=== PATIENT | male | born 1970 | race Caucasian/White ===

== ENCOUNTER 2017-10-08 20:52 | Emergency (ER) | payer SELFPAY ==
[~2017-10-08] VITALS: Ht 162.6 cm; Wt 86.0 kg
[2017-10-08 21:03] VITALS: Ht 162.6 cm; Wt 86.0 kg
--- NOTE | 2017-10-08 22:15 | ERD ---
ER Documentation Chief Complaint Chief Complaint BIB SELF, CC: FATIGUE, POLYURIA, AND POLYDIPSIA X 2 WEEKS HPI 47-year-old male who presents to the emergency department for generalized weakness, polyuria, and polydipsia for about 2 weeks. Denies headache, dizziness, blurred vision, neck pain, throat pain, difficulty swallowing, shoulder pain, chest pain, back pain, abdominal pain, nausea, vomiting, constipation, diarrhea, hematuria, dysuria, trauma, injury, falls, difficulty walking, recent long travel, recent travel, recent exposure to any illness, changes in diet, recent antibiotic use in the last 3 months, fever, chills, numbness or tingling sensation. No known drug allergies. No past medical history. No surgeries. Does not take any prescription medication at home. 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 Denies smoking, use of alcoholic beverages, use of illegal drugs. ROS All systems reviewed and are negative except as per history of present illness. Medications Home Meds Active Scripts Metformin* (Glucophage*) 500 Mg Tab, 500 MG PO BID, #60 TAB Prov:LUIS ENRIQUE GREEN 10/08/17 Allergies Allergies: Coded Allergies: No Known Allergy (Unverified , 10/08/17) PMhx/Soc Medical and Surgical Hx: pt denies Medical Hx, pt denies Surgical Hx Hx Alcohol Use: No Hx Substance Use: No Hx Tobacco Use: No Smoking Status: Never smoker Physical Exam Vitals Vital Signs Date Time Temp Pulse Resp B/P Pulse Ox O2 Delivery O2 Flow Rate FiO2 10/08/17 21:03 98.5 89 18 126/80 100 Physical Exam Const: [] Head: Atraumatic Eyes: Normal Conjunctiva ENT: Normal External Ears, Nose and Mouth. Neck: Full range of motion..~ No meningismus. Resp: Clear to auscultation bilaterally Cardio: Regular rate and rhythm, no murmurs Abd: Soft, non tender, non distended. Normal bowel sounds Skin: No petechiae or rashes Back: No midline or flank tenderness Ext: No cyanosis, or edema Neur: Awake and alert. Neurological deficits. Romberg test is negative. Psych: Normal Mood and Affect Result Diagram: 10/08/17222910/08/172229 Results 24 hrs Laboratory Tests Test 10/08/17 22:30 11/18/17 22:40 White Blood Count 6.710^3/ul Red Blood Count 4.7010^6/ul Hemoglobin 14.7g/dl Hematocrit 41.0% Mean Corpuscular Volume 87.2fl Mean Corpuscular Hemoglobin 31.3pg Mean Corpuscular Hemoglobin Concent 35.9g/dl Red Cell Distribution Width 11.9% Platelet Count 12842^3/UL Mean Platelet Volume 11.6fl Neutrophils % 57.8% Lymphocytes % 31.1% Monocytes % 8.5% Eosinophils % 1.8% Basophils % 0.4% Nucleated Red Blood Cells % 0.0/100WBC Neutrophils # 3.910^3/ul Lymphocytes # 2.110^3/ul Monocytes # 0.610^3/ul Eosinophils # 0.110^3/ul Basophils # 0.010^3/ul Nucleated Red Blood Cells # 0.010^3/ul Prothrombin Time 13.1Sec Prothrombin Time Ratio 1.0 INR International Normalized Ratio 0.99 Activated Partial Thromboplast Time 27.2Sec Sodium Level 136mmol/L Potassium Level 4.3mmol/L Chloride Level 101mmol/L Carbon Dioxide Level 29mmol/L Anion Gap 10 Blood Urea Nitrogen 13mg/dl Creatinine 0.73mg/dl Glucose Level 264mg/dl Calcium Level 9.3mg/dl Total Bilirubin 0.9mg/dl Direct Bilirubin 0.00mg/dl Indirect Bilirubin 0.9mg/dl Aspartate Amino Transf (AST/SGOT) 26IU/L Alanine Aminotransferase (ALT/SGPT) 56IU/L Alkaline Phosphatase 140IU/L Troponin I < 0.012ng/ml Total Protein 7.4g/dl Albumin 3.9g/dl Globulin 3.50g/dl Albumin/Globulin Ratio 1.11 Urine Color YELLOW Urine Clarity CLEAR Urine pH 5.0 Urine Specific [place] 1.028 Urine Ketones TRACEmg/dL Urine Nitrite NEGATIVEmg/dL Urine Bilirubin NEGATIVEmg/dL Urine Urobilinogen NEGATIVEmg/dL Urine Leukocyte Esterase NEGATIVELeu/ul Urine Hemoglobin NEGATIVEmg/dL Urine Glucose 3+mg/dL Urine Total Protein NEGATIVEmg/dl Current Medications Medications (Trade) Dose Ordered Sig/Gayle Route PRN Reason Start Time Stop Time Status Last Admin Dose Admin Sodium Chloride (NS) 1,000 ml @ 1,000 mls/hr Q1H ONCE IV 10/09/17 00:00 10/09/17 00:41 DC 10/09/17 00:04 Procedures/MDM 47-year-old male who presents to the emergency department for generalized weakness, polyuria, and polydipsia for about 2 weeks. Denies headache, dizziness, blurred vision, neck pain, throat pain, difficulty swallowing, shoulder pain, chest pain, back pain, abdominal pain, nausea, vomiting, constipation, diarrhea, hematuria, dysuria, trauma, injury, falls, difficulty walking, recent long travel, recent travel, recent exposure to any illness, changes in diet, recent antibiotic use in the last 3 months, fever, chills, numbness or tingling sensation. No known drug allergies. No past medical history. No surgeries. Does not take any prescription medication at home. 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 Denies smoking, use of alcoholic beverages, use of illegal drugs. Physical exam: Unremarkable. Disease process was explained to the patient and family members. They verbalized understanding and agreed with the diagnostic test, plan of care. EKG: Sinus bradycardia with ventricular rate of 53 bpm. No STEMI. Read by revising emergency room physician, Dr. Jose M Mitchell. Blood tests: Hyperglycemia. Urinalysis: Positive for glucose. Treatment: IV insertion. Normal saline IV. I offered the patient to be admitted here in the emergency department but patient refused to stay stating that he has a good PCP follow-up. Case and diagnostic test results was discussed with supervising physician, Dr. Jose M Mitchell who agreed in my medical decision making. Reevaluation: Denies headache, dizziness, blurry vision, neck pain, throat pain , difficulty swallowing, shoulder pain, chest pain, back pain, abdominal pain, nausea, vomiting. No episode of emesis here in the emergency department. There is no right upper/right lower/epigastric/left upper/left lower abdominal tenderness and light and deep palpation. Negative on Rovsing's sign. Negative [place] sign. Negative psoas sign. Able to jump 5 times without developing abdominal pain. No CVA tenderness. No signs of peritoneal irritation. Reported steady gait and without difficulty without pain to abdomen. No neurovascular deficit. No neurological deficits. Differential diagnosis: New-onset diabetes versus generalized weakness Final diagnosis: New onset diabetes. Prescription: Metformin. Follow-up primary care physician the next 24-48 hours. Come back here in the emergency department for any new symptoms or any worsening symptoms. All questions and concerns were answered. Patient and family member verbalized understanding and agreed with the plan of care. Hemodynamically stable on discharge. Departure Diagnosis: Primary Impression: New onset type 2 diabetes mellitus Condition: Stable Additional Instructions: Follow-up primary care physician the next 24-48 hours. Come back here in the emergency department for any new symptoms or any worsening symptoms. All questions and concerns were answered. Patient and family member verbalized understanding and agreed with the plan of care. LUIS ENRIQUE GREEN Oct 08, 2017 22:15
[2017-10-08 22:44] LABS: BASOPHILS % 0.4 % (0.0-2.0); EOSINOPHILS # 0.1 10^3/ul (0.0-0.5); EOSINOPHILS % 1.8 % (0.0-7.0); HEMOGLOBIN 14.7 g/dl (14.0-18.0); LYMPHOCYTES # 2.1 10^3/ul (0.8-2.9); LYMPHOCYTES % 31.1 % (15.0-51.0); MEAN CORPUSCULAR HEMOGLOBIN 31.3 pg (29.0-33.0); MEAN CORPUSCULAR HGB CONC 35.9 g/dl (32.0-37.0); MEAN CORPUSCULAR VOLUME 87.2 fl (82.0-101.0); MEAN PLATELET VOLUME 11.6 fl (7.4-10.4); MONOCYTE # 0.6 10^3/ul (0.3-0.9); MONOCYTES % 8.5 % (0.0-11.0); NEUTROPHIL # 3.9 10^3/ul (1.6-7.5); NEUTROPHILS % 57.8 % (39.0-77.0); PLATELET COUNT 248 10^3/UL (140-415); RED CELL DISTRIBUTION WIDTH 11.9 % (11.5-14.5); WHITE BLOOD COUNT 6.7 10^3/ul (4.8-10.8)
[2017-10-08 22:50] LABS: ADD UMIC NO; UR ASCORBIC ACID 40 mg/dL (NEGATIVE); UR BILIRUBIN (Dip) NEGATIVE (NEGATIVE); UR BLOOD (Dip) NEGATIVE (NEGATIVE); UR CLARITY CLEAR (CLEAR); UR COLOR YELLOW (YELLOW); UR GLUCOSE (Dip) 3+ mg/dL (NEGATIVE); UR KETONES (Dip) TRACE mg/dL (NEGATIVE); UR LEUKOCYTE ESTERASE (Dip) NEGATIVE Leu/ul (NEGATIVE); UR NITRITE (Dip) NEGATIVE (NEGATIVE); UR SPECIFIC GRAVITY (Dip) 1.028 (1.003-1.030); UR TOTAL PROTEIN (Dip) NEGATIVE (NEGATIVE); UR UROBILINOGEN (Dip) NEGATIVE (NEGATIVE)
[2017-10-08 22:58] LABS: INR 0.99; PROTIME 13.1 Sec (12.2-14.2)
[2017-10-08 22:59] LABS: PARTIAL THROMBOPLASTIN TIME 27.2 Sec (25.0-35.0)
[2017-10-08 23:01] LABS: ALANINE AMINOTRANSFERASE 56 IU/L (13-69); ALBUMIN 3.9 g/dl (3.3-4.9); ALBUMIN/GLOBULIN RATIO 1.11; ALKALINE PHOSPHATASE 140 IU/L (42-121); ANION GAP 10 (8-16); ASPARTATE AMINO TRANSFERASE 26 IU/L (15-46); BILIRUBIN,INDIRECT 0.9 mg/dl (0-1.1); BILIRUBIN,TOTAL 0.9 mg/dl (0.2-1.3); BLOOD UREA NITROGEN 13 mg/dl (7-20); CALCIUM 9.3 mg/dl (8.4-10.2); CARBON DIOXIDE 29 mmol/L (21-31); CHLORIDE 101 mmol/L (97-110); CREATININE 0.73 mg/dl (0.61-1.24); GLUCOSE 264 mg/dl (70-220); POTASSIUM 4.3 mmol/L (3.5-5.1); SODIUM 136 mmol/L (135-144); TOTAL PROTEIN 7.4 g/dl (6.1-8.1)
[2017-10-08 23:13] LABS: TROPONIN-I < 0.012 ng/ml (0.00-0.12)
[2017-10-08] MEDS ORDERED: METF500T4 PO (23:44)
[2017-10-09] MEDS ORDERED: SOD CHLORIDE 0.9% 1,000 ML IV ONE
== END 2017-10-09 00:41 | disposition home or self-care (01) ==
LOC: FTE 20:52
DX: E11.9 Type 2 diabetes mellitus without complications (principal); R07.9 Chest pain, unspecified
CPT/HCPCS: 80053; 81003; 84484; 85025; 85610; 85730; 93005; 99284; J7030

== ENCOUNTER 2017-10-12 02:24 | Inpatient (IN) | payer MEDICAID ==
[2017-10-12] VITALS (9 sets, daily range): BP systolic 121–152; BP diastolic 70–93; PULSE 62–83; RESP 12–26; TEMP 98.5; Ht 162.6 cm; Wt 67.3 kg
[~2017-10-12] VITALS: Ht 162.6 cm; Wt 67.3 kg
[~2017-10-12 02:24] MED LIST: METF500T4 PO
[2017-10-12 03:16] LABS: BASOPHILS % 0.3 % (0.0-2.0); EOSINOPHILS # 0.1 10^3/ul (0.0-0.5); EOSINOPHILS % 1.5 % (0.0-7.0); HEMATOCRIT 41.9 % (42.0-52.0); LYMPHOCYTES # 1.9 10^3/ul (0.8-2.9); LYMPHOCYTES % 26.7 % (15.0-51.0); MEAN CORPUSCULAR HEMOGLOBIN 31.2 pg (29.0-33.0); MEAN CORPUSCULAR HGB CONC 35.8 g/dl (32.0-37.0); MEAN CORPUSCULAR VOLUME 87.1 fl (82.0-101.0); MONOCYTE # 0.6 10^3/ul (0.3-0.9); MONOCYTES % 8.3 % (0.0-11.0); NEUTROPHIL # 4.5 10^3/ul (1.6-7.5); NEUTROPHILS % 62.9 % (39.0-77.0); PLATELET COUNT 229 10^3/UL (140-415); RED BLOOD COUNT 4.81 10^6/ul (4.70-6.10); RED CELL DISTRIBUTION WIDTH 12.1 % (11.5-14.5); WHITE BLOOD COUNT 7.1 10^3/ul (4.8-10.8)
--- NOTE | 2017-10-12 03:19 | RADRPT ---
PROCEDURE: XR Chest. CLINICAL INDICATION: Chest pain TECHNIQUE: Single frontal view of the chest. COMPARISON: None. FINDINGS: Heart size is at upper limits of normal. The lungs are clear. No signs of pleural fluid or pneumotho rax are seen. The osseous structures and soft tissues are unremarkable. IMPRESSION: No evidence for active cardiopulmonary disease. RPTAT: [facility] Physician Marko Date Time Electronically viewed and signed by Physician Marko on 10/12/2017 03:19 RS/
[2017-10-12 03:36] LABS: ALBUMIN 3.9 g/dl (3.3-4.9); ALBUMIN/GLOBULIN RATIO 1.25; ALKALINE PHOSPHATASE 150 IU/L (42-121); ANION GAP 15 (8-16); ASPARTATE AMINO TRANSFERASE 23 IU/L (15-46); BILIRUBIN,INDIRECT 0.3 mg/dl (0-1.1); BILIRUBIN,TOTAL 0.3 mg/dl (0.2-1.3); BLOOD UREA NITROGEN 7 mg/dl (7-20); CALCIUM 8.9 mg/dl (8.4-10.2); CARBON DIOXIDE 23 mmol/L (21-31); CHLORIDE 98 mmol/L (97-110); CREATININE 0.73 mg/dl (0.61-1.24); POTASSIUM 3.7 mmol/L (3.5-5.1); SODIUM 132 mmol/L (135-144)
[2017-10-12 03:38] LABS: ALANINE AMINOTRANSFERASE 44 IU/L (13-69)
[2017-10-12 03:39] LABS: GLUCOSE 493 mg/dl (70-220)
[2017-10-12 03:48] LABS: B-TYPE NATRIURETIC PEPTIDE 37 PG/ML (0-125)
[2017-10-12 03:51] LABS: CK-MB 0.84 ng/ml (0.0-2.4); TROPONIN-I < 0.012 ng/ml (0.00-0.12)
[2017-10-12 03:52] LABS: CREATINE KINASE 76 IU/L (23-200); TROPONIN-I < 0.012 ng/ml (0.00-0.12)
--- NOTE | 2017-10-12 04:02 | ERD ---
ER Documentation Chief Complaint Chief Complaint Feels pressure on left side of chest which woke him up. 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 Pain is nonradiating. Mild to moderate intensity. No nausea no vomiting no chills. No other current complaints. Patient was not was palpitations. Recently diagnosed with diabetes mellitus. ROS All systems reviewed and are negative except as per history of present illness. Medications Home Meds Active Scripts Metformin* (Glucophage*) 500 Mg Tab, 500 MG PO BID, #60 TAB Prov:LUIS ENRIQUE GREEN 10/08/17 Allergies Allergies: Coded Allergies: No Known Allergy (Unverified , 10/08/17) PMhx/Soc Hx Alcohol Use: No Hx Substance Use: No Hx Tobacco Use: No Physical Exam Vitals Vital Signs Date Time Temp Pulse Resp B/P Pulse Ox O2 Delivery O2 Flow Rate FiO2 10/12/17 03:00 97.8 78 30 149/83 97 Room Air 10/12/17 02:33 97.8 89 20 164/80 97 Physical Exam Const: [] Head: Atraumatic Eyes: Normal Conjunctiva ENT: Normal External Ears, Nose and Mouth. Neck: Full range of motion..~ No meningismus. Resp: Clear to auscultation bilaterally Cardio: Regular rate and rhythm, no murmurs Abd: Soft, non tender, non distended. Normal bowel sounds Skin: No petechiae or rashes Back: No midline or flank tenderness Ext: No cyanosis, or edema Neur: Awake and alert Psych: Normal Mood and Affect Result Diagram: 10/12/17 0300 10/12/17 0300 Results 24 hrs Laboratory Tests Test 10/12/17 03:00 10/12/17 03:08 White Blood Count 7.110^3/ul Red Blood Count 4.8110^6/ul Hemoglobin 15.0g/dl Hematocrit 41.9% Mean Corpuscular Volume 87.1fl Mean Corpuscular Hemoglobin 31.2pg Mean Corpuscular Hemoglobin Concent 35.8g/dl Red Cell Distribution Width 12.1% Platelet Count 30861^3/UL Mean Platelet Volume 12.0fl Neutrophils % 62.9% Lymphocytes % 26.7% Monocytes % 8.3% Eosinophils % 1.5% Basophils % 0.3% Nucleated Red Blood Cells % 0.0/100WBC Neutrophils # 4.510^3/ul Lymphocytes # 1.910^3/ul Monocytes # 0.610^3/ul Eosinophils # 0.110^3/ul Basophils # 0.010^3/ul Nucleated Red Blood Cells # 0.010^3/ul Sodium Level 132mmol/L Potassium Level 3.7mmol/L Chloride Level 98mmol/L Carbon Dioxide Level 23mmol/L Anion Gap 15 Blood Urea Nitrogen 7mg/dl Creatinine 0.73mg/dl Glucose Level 493mg/dl Calcium Level 8.9mg/dl Total Bilirubin 0.3mg/dl Direct Bilirubin 0.00mg/dl Indirect Bilirubin 0.3mg/dl Aspartate Amino Transf (AST/SGOT) 23IU/L Alanine Aminotransferase (ALT/SGPT) 44IU/L Alkaline Phosphatase 150IU/L Creatine Kinase 76IU/L Creatine Kinase Index 1.1 Creatinine Kinase MB (Mass) 0.84ng/ml Troponin I < 0.012ng/ml B-Type Natriuretic Peptide 37PG/ML Total Protein 7.0g/dl Albumin 3.9g/dl Globulin 3.10g/dl Albumin/Globulin Ratio 1.25 Bedside Glucose 453mg/dL Procedures/MDM EKG: Rate/Rhythm: [Normal Sinus Rhythm] QRS, ST, T-waves: [No changes consistent w/ acute ischemia] Impression: [No evidence of ischemia or arrhythmia] Chest X-ray 1V Interpreted by me: Soft Tissue: No acute abnormalities Bones: No acute abnormalities Mediastinum/Cardiac Silhouette/Lungs: [No acute abnormalities] Patient's symptoms are concerning for cardiac cause will require inpatient workup and continuous monitoring. Further w/u for ischemia, arrhythmia, PE or dissection will be deferred to the inpatient team. Accepting Care Team: Current data and ongoing care discussed. Time: 4 AM Primary Provider: Hospitalist Consulting: [XOXOXO] Outstanding Data: none Departure Diagnosis: Primary Impression: Chest pain Chest pain type: unspecified Qualified Code: R07.9 - Chest pain, unspecified type Condition: Serious DOMINGO RICHMOND Oct 12, 2017 04:02
[2017-10-12] MEDS: SOD CHLORIDE 0.9% 1,000 ML IV SCH ×3 (04:39→23:39)
[2017-10-12] MEDS ORDERED: INSULIN ASPART [NOVOLOG] 3 ML PEN SC STA ×2 (05:53→16:22)
[2017-10-12] MEDS ORDERED: NACL 0.9% 3 ML SYG IV SCH (06:00)
[2017-10-12] MEDS ORDERED: NITROGLYCERIN (SL) 0.4 MG TAB SL PRN (06:00)
[2017-10-12] MEDS ORDERED: ACETAMINOPHEN 325 MG TAB PO PRN (06:00)
[2017-10-12] MEDS ORDERED: morphine 2 MG INJ IV PRN (06:00)
[2017-10-12] MEDS ORDERED: ALBUTEROL/IPRATROPIUM (NEB) 3 ML AMP HHN PRN (06:00)
[2017-10-12] MEDS ORDERED: ONDANSETRON 4 MG INJ IV PRN (06:00)
[2017-10-12] MEDS ORDERED: GLUCAGON 1 MG INJ IM PRN (06:30)
[2017-10-12] MEDS ORDERED: GLUCOSE GEL 15 GRAM TUBE BUCCAL PRN (06:30)
[2017-10-12] MEDS ORDERED: GLUCOSE GEL 15 GRAM TUBE PO PRN ×2 (06:30)
[2017-10-12] MEDS ORDERED: DEXTROSE 50% 50 ML SYRINGE IV PRN ×2 (06:30)
[2017-10-12] MEDS: INSULIN GLARGINE [LANtus] 3 ML PEN SC SCH (06:46)
[2017-10-12] MEDS ORDERED: METF500T4 PO (07:49)
[2017-10-12] MEDS: INSULIN ASPART [NOVOLOG] 3 ML PEN SC SCH ×4 (08:00→21:54)
[2017-10-12] MEDS: ASPIRIN 81 MG TAB PO SCH (08:57)
[2017-10-12] MEDS: ENOXAPARIN 40 MG/0.4 ML SYG SC SCH (08:57)
[2017-10-12 17:28] LABS: CREATINE KINASE 52 IU/L (23-200)
[2017-10-12 17:45] LABS: CK-MB 0.49 ng/ml (0.0-2.4); TROPONIN-I < 0.012 ng/ml (0.00-0.12)
--- NOTE | 2017-10-12 17:50 | RADRPT ---
Echocardiogram Report Patient Name: JACLYN NEWELL Gender: Male Date: 1970 Study Date: 12-Oct-2017 Lotus Notes Developer: [place] [facility] Location: [facility] Ref. Physician: DOMINGO CISNEROS Quality: Adequate Procedures: Transthoracic echocardiogram with complete 2D, M-Mode, and doppler examination. Indications: Chest Pain. 2D/M Mode Doppler Measurement Value Normal Ranges Measurement Value Normal Ranges LVIDd 2D 4.1 3.5 - 5.6 cm AV Peak Matty 1.8 m/sec LVIDs 2D 2.6 2.1 - 4.1 cm AV Peak PG 13.0 mmHg FS 2D 37.6 % LVOT Peak Matty 1.4 m/sec LVPWd 2D 1.3 0.6 - 1.1 cm LVOT Peak PG 8.0 mmHg IVSd 2D 1.3 0.6 - 1.1 cm MV E Peak Matty 1.0 m/sec IVS/LVPW 2D 1.0 MV A Peak Matty 0.8 m/sec AoR Diam 2D 2.8 2.0 - 3.7 cm MV E/A 1.2 LA/Ao 2D 1 0 - 1 MV Decel Time 190 msec EDV 2D 69.9 cm3 MV E/A 1.2 ESV 2D 17.0 cm3 TR Peak Matty 2.5 m/sec LA Dimen 2D 3.2 2.3 - 4.0 cm TR Peak PG 24.0 mmHg RVSP 27.0 mmHg Findings Left Ventricle: Normal left ventricular systolic function. Normal left ventricular cavity size. Left ventricular wall thickness upper limits of normal. Ejection fraction is visually estimated at 5560 %. Abnormal Diastolic Function. Right Ventricle: Normal right ventricular size. Normal right ventricular systolic function. Left Atrium: The left atrium is normal in size. Right Atrium: The right atrium is normal in size. Mitral Valve: Mild mitral leaflet calcification. Mild mitral annular calcification. Mild mitral valve regurgitation. Aortic Valve: No significant aortic stenosis. Aortic cusps appear mildly calcified. Trace aortic valve regurgitation. Tricuspid Valve: Normal appearance of the tricuspid valve. Estimated peak PA systolic pressure 27 mmHg. There is mild tricuspid regurgitation. Pulmonic Valve: Pulmonic valve not well visualized. There is trace pulmonic regurgitation. Pericardium: Normal pericardium with no significant pericardial effusion. Aorta: Normal aortic root. IVC: Normal size and normal respiratory collapse consistent with normal right atrial pressure. Conclusions 1.Normal left ventricular systolic function. Normal left ventricular cavity size. Left ventricular wall thickness upper limits of normal. Ejection fraction is visually estimated at 55-60 %. Abnormal Diastolic Function. 2.Mild mitral leaflet calcification. Mild mitral annular calcification. Mild mitral valve regurgitation. 3.No significant aortic stenosis. Aortic cusps appear mildly calcified. Trace aortic valve regurgitation. 4.Normal appearance of the tricuspid valve. Estimated peak PA systolic pressure 27 mmHg. There is mild tricuspid regurgitation. 5.Pulmonic valve not well visualized. There is trace pulmonic regurgitation. Electronically Signed By: Arthur Oakley 12-Oct-2017 17:49:41 -0800 Patient Name: JACLYN NEWELL Study Date: 12-Oct-2017 [id number]
[2017-10-12] MEDS: FAMOTIDINE 20 MG TAB PO SCH (21:00)
--- NOTE | 2017-10-12 23:53 | HP ---
Date/Time of Note Date/Time of Note DATE: 10/12/17 TIME: 23:53 Assessment/Plan VTE Prophylaxis VTE Prophylaxis Intervention: SCD's Lines/Catheters IV [facility] Saline Lock Urinary Cath still in place: No Assessment/Plan Assessment/Plan 1. Chest pain/palpitation -Admit to telemetry unit and rule out ACS -Patient has been having diarrhea as a result of metformin. palpitation symptoms that he felt was probably rebound tachycardia as a result of volume depletion. -Obtain 2D echo and trend troponin 2. Diabetes with hyperglycemia -Patient was diagnosed with diabetes 3 days ago and was discharged on metformin which has been giving him diarrhea. He will be on insulin while in-house. Check A1c HPI/ROS Admit Date/Time Admit Date/Time Oct 12, 2017 at 16:12 Hx of Present Illness This is a 47-year-old male was recently diagnosed diabetes who presented to the emergency department complaining of palpitations and vague chest discomfort. 3 days ago he was seen here in our ER and was diagnosed with diabetes and there was discharged to was metformin. He said that every time he takes metformin, a few hours later he has been having diarrhea. Yesterday he started having palpitations and vague chest discomfort and as such he decided to come to ER for evaluation. PMH/Family/Social Social History Smoking Status: Never smoker Exam/Review of Systems Vital Signs Vitals Vital Signs Date Time Temp Pulse Resp B/P Pulse Ox O2 Delivery O2 Flow Rate FiO2 10/12/17 23:00 83 26 152/93 96 Room Air 10/12/17 20:00 98.7 Exam Constitutional: alert, oriented, well developed Head: atraumatic, normocephalic Eyes: EOMI, PERRL Respiratory: clear to auscultation, normal air movement Cardiovascular: nl pulses, regular rate and rhythm Gastrointestinal: non-tender, soft Extremities: normal pulses Labs Result Diagram: 10/12/17 0300 10/12/17 0300 Medications Medications Current Medications Sodium Chloride (NS) 1,000 ml @ 100 mls/hr Q10H IV Last administered on t 23:39; Admin Dose 100 MLS/HR; Start 10/12/17 at 04:30 Ondansetron HCl (Zofran Inj) 4 mg Q6H PRN IV NAUSEA AND/OR VOMITING; Start at 06:00 Aspirin (Aspirin) 81 mg DAILY PO Last administered on 10/12/17 08:57; Admin Dose 81 MG; Start 10/12/17 at 09:00 Nitroglycerin (Nitroglycerin (Sl Tab) 0.4 Mg) 1 tab Q5M PRN SL CHEST PAIN; Start 10/12/17 at 06:00 Acetaminophen (Tylenol Tab) 650 mg Q6H PRN PO PAIN LEVEL 1-3 OR FEVER Last administered on 10/12/17 14:46; Admin Dose 325 MG; Start 10/12/17 at 06:00 Morphine Sulfate (morphine) 2 mg Q4H PRN IV PAIN LEVEL 7-10; Start 10/12/17 at 06:00 Enoxaparin Sodium (Lovenox) 40 mg DAILY SC Last administered on 10/12/17 08: 57; Admin Dose 40 MG; Start 10/12/17 at 09:00 Diagnostic Test (Pha) (Accu-Chek) 1 ea 02 XX ; Start 10/13/17 at 02:00 Insulin Glargine (Lantus) 15 unit DAILY@08 SC Last administered on 10/12/17 06:46; Admin Dose 15 UNIT; Start 10/12/17 at 06:01 Miscellaneous Information 1 ea NOTE XX ; Start 10/12/17 at 06:30 Glucose (Glutose) 15 gm Q15M PRN PO DECREASED GLUCOSE; Start 10/12/17 at 06:30 Glucose (Glutose) 22.5 gm Q15M PRN PO DECREASED GLUCOSE; Start 10/12/17 at 06: 30 Dextrose (D50w Syringe) 25 ml Q15M PRN IV DECREASED GLUCOSE; Start 10/12/17 at 06:30 Dextrose (D50w Syringe) 50 ml Q15M PRN IV DECREASED GLUCOSE; Start 10/12/17 at 06:30 Glucagon (Glucagen) 1 mg Q15M PRN IM DECREASED GLUCOSE; Start 10/12/17 at 06: 30 Glucose (Glutose) 15 gm Q15M PRN BUCCAL DECREASED GLUCOSE; Start 10/12/17 at 06:30 Famotidine (Pepcid) 20 mg BID PO ; Start 10/12/17 at 21:00 DOMINGO CISNEROS MD Oct 12, 2017 23:53
[2017-10-13] VITALS (17 sets, daily range): BP systolic 101–140; BP diastolic 71–93; PULSE 57–97; RESP 15–25
[2017-10-13] MEDS ORDERED: ACCU-CHEK XX SCH (02:00)
[2017-10-13 05:22] LABS: BASOPHILS % 0.2 % (0.0-2.0); EOSINOPHILS # 0.1 10^3/ul (0.0-0.5); EOSINOPHILS % 0.9 % (0.0-7.0); HEMATOCRIT 42.6 % (42.0-52.0); HEMOGLOBIN 15.2 g/dl (14.0-18.0); LYMPHOCYTES % 22.4 % (15.0-51.0); MEAN CORPUSCULAR HGB CONC 35.7 g/dl (32.0-37.0); MEAN CORPUSCULAR VOLUME 86.9 fl (82.0-101.0); MEAN PLATELET VOLUME 11.4 fl (7.4-10.4); MONOCYTE # 0.7 10^3/ul (0.3-0.9); MONOCYTES % 7.3 % (0.0-11.0); NEUTROPHIL # 6.1 10^3/ul (1.6-7.5); PLATELET COUNT 261 10^3/UL (140-415); RED CELL DISTRIBUTION WIDTH 12.3 % (11.5-14.5); WHITE BLOOD COUNT 8.9 10^3/ul (4.8-10.8)
[2017-10-13 05:33] LABS: ALBUMIN 3.5 g/dl (3.3-4.9); CALCIUM 9.2 mg/dl (8.4-10.2); CREATININE 0.72 mg/dl (0.61-1.24); MAGNESIUM 1.8 mg/dl (1.7-2.5); POTASSIUM 3.9 mmol/L (3.5-5.1)
[2017-10-13 06:01] LABS: THYROID STIMULATING HORMONE 1.05 MIU/L (0.465-4.680)
[2017-10-13] MEDS: INSULIN ASPART [NOVOLOG] 3 ML PEN SC SCH ×2 (08:42→11:45)
[2017-10-13] MEDS: ENOXAPARIN 40 MG/0.4 ML SYG SC SCH (08:43)
[2017-10-13] MEDS: FAMOTIDINE 20 MG TAB PO SCH (08:44)
[2017-10-13] MEDS: ASPIRIN 81 MG TAB PO SCH (08:44)
[2017-10-13] MEDS: INSULIN GLARGINE [LANtus] 3 ML PEN SC SCH (09:47)
[2017-10-13] MEDS: SOD CHLORIDE 0.9% 1,000 ML IV SCH (11:46)
--- NOTE | 2017-10-13 14:12 | PDOCDIS ---
Discharge Instructions DIAGNOSIS Discharge Diagnosis Hyperglycemia CONDITION Patient Condition: Good HOME CARE INSTRUCTIONS: Special Diet: 1800 ACTIVITY: Activity Restrictions: Slowly Increase Activity Do not Drive FOLLOW UP/APPOINTMENTS Follow-up Plan Primary care 1 week. Accu-Chek and record blood sugars 4 times a day. -Eat 5 small meals spaced out throughout the day. - If Skipping meals, take half of your Humalog dose. LANCE FATIMA MD Oct 13, 2017 14:12
[2017-10-13] MEDS ORDERED: LANT3I SC (14:13)
[2017-10-13] MEDS ORDERED: INSU100I22 SC ×2 (14:15→14:16)
--- NOTE | 2017-10-13 15:29 | DS ---
Date/Time of Note Date/Time of Note DATE: 10/13/17 TIME: 15:28 Discharge Summary Admission/Discharge Info Admit Date/Time Oct 12, 2017 at 16:12 Discharge Date/Time Discharge Diagnosis Hyperglycemia Patient Condition: Good Hx of Present Illness 39-year-old gentleman admitted with atypical chest pain palpitations. He is anxious in new environments. Never been hospitalized. Recently had diarrhea. Recently started new medicines for diabetes. Hospital Course Evaluated and managed for atypical chest pain palpitations. Ruled out for ACS via enzymes EKG symptoms. Chest x-ray normal. Stable and fit for discharge with risk factor modification. Diarrhea benign. I will stop metformin. At this time. Was counseled regarding the effects of medicines and diarrhea. In terms of his diabetes his A1c is not anywhere near goal. I recommended insulin and he agrees. The nurse has done insulin training. He will follow-up with his primary Dr. Jones in 1 week Home Meds Active Scripts Insulin Aspart (Novolog FlexPen) 100 Unit/1 Ml Insuln.pen, 5 UNITS SC WITH MEALS for 10 Days, #30 EA 1 Refill Prov:LANCE FATIMA MD 10/13/17 Insulin Glargine* (Lantus*) 100 Unit/Ml Soln, 15 UNIT SC DAILY@08 for 10 Days, # 10 1 Refill Prov:LANCE FATIMA MD 10/13/17 Discontinued Reported Medications Metformin* (Glucophage*) 500 Mg Tab, 500 MG PO BID, #30 TAB 10/12/17 Discontinued Scripts Metformin* (Glucophage*) 500 Mg Tab, 500 MG PO BID, #60 TAB Prov:LUIS ENRIQUE GREEN 10/08/17 Follow-up Plan Primary care 1 week. Accu-Chek and record blood sugars 4 times a day. -Eat 5 small meals spaced out throughout the day. - If Skipping meals, take half of your Humalog dose. Primary Care Provider Not On Staff Doctor Time spent on discharge: < 30 minutes Pending Labs Laboratory Tests Test 10/12/17 16:51 10/12/17 18:30 10/12/17 21:45 10/13/17 05:02 Creatine Kinase 52IU/L (23-200) Creatine Kinase Index 0.9 Creatinine Kinase MB (Mass) 0.49ng/ml (0.0-2.4) Troponin I < 0.012ng/ml (0.00-0.12) Bedside Glucose 156mg/dL (70-220) 190mg/dL (70-220) White Blood Count 8.910^3/ul (4.8-10.8) Red Blood Count 4.9010^6/ul (4.70-6.10) Hemoglobin 15.2g/dl (14.0-18.0) Hematocrit 42.6% (42.0-52.0) Mean Corpuscular Volume 86.9fl (82.0-101.0) Mean Corpuscular Hemoglobin 31.0pg (29.0-33.0) Mean Corpuscular Hemoglobin Concent 35.7g/dl (32.0-37.0) Red Cell Distribution Width 12.3% (11.5-14.5) Platelet Count 98481^3/UL (140-415) Mean Platelet Volume 11.4fl (7.4-10.4) Neutrophils % 69.0% (39.0-77.0) Lymphocytes % 22.4% (15.0-51.0) Monocytes % 7.3% (0.0-11.0) Eosinophils % 0.9% (0.0-7.0) Basophils % 0.2% (0.0-2.0) Nucleated Red Blood Cells % 0.0/100WBC (0.0-0.0) Neutrophils # 6.110^3/ul (1.6-7.5) Lymphocytes # 2.010^3/ul (0.8-2.9) Monocytes # 0.710^3/ul (0.3-0.9) Eosinophils # 0.110^3/ul (0.0-0.5) Basophils # 0.010^3/ul (0.0-0.1) Nucleated Red Blood Cells # 0.010^3/ul (0.0-0.0) Sodium Level 141mmol/L (135-144) Potassium Level 3.9mmol/L (3.5-5.1) Chloride Level 106mmol/L (97-110) Carbon Dioxide Level 26mmol/L (21-31) Anion Gap 13 (8-16) Blood Urea Nitrogen 6mg/dl (7-20) Creatinine 0.72mg/dl (0.61-1.24) Glucose Level 159mg/dl (70-220) Hemoglobin A1c % (0-5.9) Calcium Level 9.2mg/dl (8.4-10.2) Magnesium Level 1.8mg/dl (1.7-2.5) Total Bilirubin 1.0mg/dl (0.2-1.3) Direct Bilirubin 0.00mg/dl (0.00-0.20) Indirect Bilirubin 1.0mg/dl (0-1.1) Aspartate Amino Transf (AST/SGOT) 26IU/L (15-46) Alanine Aminotransferase (ALT/SGPT) 53IU/L (13-69) Alkaline Phosphatase 126IU/L (42-121) Total Protein 7.0g/dl (6.1-8.1) Albumin 3.5g/dl (3.3-4.9) Globulin 3.50g/dl (1.3-3.2) Albumin/Globulin Ratio 1.00 Triglycerides Level 116mg/dl (0-149) Cholesterol Level 198mg/dl (100-200) LDL Cholesterol, Calculated 126mg/dl HDL Cholesterol 49mg/dl (27-67) Cholesterol/HDL Ratio 4.0RATIO Lipase 78U/L (23-300) Thyroid Stimulating Hormone (TSH) 1.050MIU/L (0.465-4.680) Test 10/13/17 06:15 10/13/17 07:42 10/13/17 11:42 Bedside Glucose 139mg/dL (70-220) 162mg/dL (70-220) 270mg/dL (70-220) LANCE FATIMA MD Oct 13, 2017 15:29
== END 2017-10-13 16:25 | disposition home or self-care (01) | DRG 313 ==
LOC: E/R 02:24 → ICU 16:12
PROVIDERS: ADMIT Internal Medicine; ATTEND Internal Medicine
DX: R07.9 Chest pain, unspecified (principal); E11.65 Type 2 diabetes mellitus with hyperglycemia; R00.2 Palpitations; R19.7 Diarrhea, unspecified
CPT/HCPCS: 36415; 71010; 80053; 80061; 82306; 82550; 82553; 82962; 83036; 83690; 83735; 83880; 84443; 84484; 85025; 93005; 93306; 96372; J1650; J1815; J7030